=== PATIENT | female | born 1980 | race Caucasian/White ===

== ENCOUNTER 2017-09-24 11:29 | Emergency (ER) | payer SELFPAY ==
[~2017-09-24] VITALS: Ht 152.4 cm; Wt 56.0 kg
[~2017-09-24 11:29] MED LIST: DIPH25CA61 PO; DM H; GABA300C10 PO; HYDR-3240 PO; HYDR1TAB12 PO; IBUP100T PO; LOSA25TA2 PO; MULT1CAP19 PO; OXYC15TA60; PROM50TA4 PO; RIZATRIPTAN; TOPI100T24 PO; TRAM-47 PO; TRAM50TA2 PO; TRAZ50TA18 PO; [UNRECOGNIZED DRUG - REMARK]; [UNRECOGNIZED DRUG - REMARK]
[2017-09-24 11:42] VITALS: BP 133/87
== END 2017-09-24 12:35 | disposition left against medical advice (07) ==
LOC: ED 12:29
DX: R51 Headache (principal); Z53.21 Procedure and treatment not carried out due to patient leaving prior to being seen by health care provider

== ENCOUNTER 2018-04-10 08:58 | Emergency (ER) | payer BC, OTHER ==
[~2018-04-10] VITALS: Ht 152.4 cm; Wt 68.6 kg
[2018-04-10] MEDS ORDERED: LISI-167 PO (10:02)
[2018-04-10] MEDS ORDERED: LORazepam 2 MG/ML, 1ML IVPush STA (10:13)
[2018-04-10] MEDS ORDERED: ONDANSETRON 2MG/ML, 2ML ONE (10:25)
[2018-04-10] MEDS ORDERED: LORazepam 2 MG/ML, 1ML ONE (10:26)
[2018-04-10] MEDS ORDERED: FAMOTIDINE 20 MG/2 ML ONE (10:26)
[2018-04-10] MEDS ORDERED: SODIUM CHLORIDE 0.9% 1,000ML IVBOLUS ONE (10:30)
[2018-04-10] MEDS ORDERED: ONDANSETRON 2MG/ML, 2ML IVPush ONE (10:30)
[2018-04-10] MEDS ORDERED: FAMOTIDINE 20 MG/2 ML IVP ONE (10:30)
[2018-04-10] MEDS ORDERED: SODIUM CHLORIDE FLUSH 10ML SYR IVF ONE (10:30)
[2018-04-10 10:35] LABS: BASOPHILS # (AUTO) 0.03 x10^3/uL (0-0.1); BASOPHILS % (AUTO) 0 % (0-1); EOSINOPHILS # (AUTO) 0.19 x10^3/uL (0-0.4); EOSINOPHILS % (AUTO) 2 % (1-7); LYMPHOCYTES # (AUTO) 1.64 x10^3/uL (1-3.4); LYMPHOCYTES % (AUTO) 21 % (22-44); MD NO; MEAN CORPUSCULAR HEMOGLOBIN 31.6 pg (27.0-34.8); MEAN CORPUSCULAR HGB CONC 34.3 g/dL (32.4-35.8); MEAN CORPUSCULAR VOLUME 92.2 fL (80-100); MEAN PLATELET VOLUME 9.3 fL (7.4-10.4); MONOCYTES # (AUTO) 0.44 x10^3/uL (0.2-0.8); MONOCYTES % (AUTO) 6 % (2-9); NEUTROPHILS # (AUTO) 5.51 x10^3/uL (1.8-6.8); NEUTROPHILS % (AUTO) 71 % (42-75); PLATELET COUNT 235 x10^3/uL (130-400); RED BLOOD COUNT 4.99 x10^6/uL (3.82-5.3); RED CELL DISTRIBUTION WIDTH 12.4 % (9.6-15.2)
[2018-04-10 10:44] LABS: ALANINE AMINOTRANSFERASE 21 U/L (12-78); ANION GAP 10 mmol/L (5-15); CALCIUM 8.4 mg/dL (8.5-10.1); CHLORIDE 103 mmol/L (98-107); CREATININE 0.86 mg/dL (0.55-1.02)
[2018-04-10 10:49] LABS: ALKALINE PHOSPHATASE 66 U/L (45-117); BILIRUBIN,TOTAL 1.3 mg/dL (0.2-1.0); TOTAL PROTEIN 7.8 g/dL (6.4-8.2)
[2018-04-10 11:40] LABS: MICROSCOPIC AUTO
[2018-04-10 12:00] LABS: CULTURE INDICATED? NO
[2018-04-10 12:11] VITALS: BP 126/72
== END 2018-04-10 12:53 | disposition home or self-care (01) ==
LOC: ED 10:25
DX: R11.2 Nausea with vomiting, unspecified (principal); I10 Essential (primary) hypertension; G40.909 Epilepsy, unspecified, not intractable, without status epilepticus
CPT/HCPCS: 36415; 80053; 81001; 83690; 84703; 85025; 96361; 96374; 96375; 99284; J2060; J2405; J7030; S0028

== ENCOUNTER 2019-02-13 18:58 | Emergency (ER) | payer BC ==
[~2019-02-13] VITALS: Ht 152.4 cm; Wt 81.3 kg
[~2019-02-13 18:58] MED LIST changes: -HYDR1TAB12 PO; +HYDR1TAB13 PO; +LISI-167 PO; -TRAZ50TA18 PO; +TRAZ50TA66 PO
--- NOTE | 2019-02-13 19:12 | NUR ---
Pt ambulated to room with EDT.
--- NOTE | 2019-02-13 19:42 | NUR ---
Emily BEVERLY, at bedside to evaluate pt.
[2019-02-13] MEDS ORDERED: KETOROLAC 30 MG/1 ML ONE (19:52)
[2019-02-13] MEDS ORDERED: LEVETIRACETAM 500 MG TABLET ONE (19:52)
[2019-02-13] MEDS ORDERED: ONDANSETRON ODT 8 MG ONE (19:52)
[2019-02-13] MEDS ORDERED: DIAZEPAM 5 MG TABLET ONE (19:53)
[2019-02-13] MEDS ORDERED: KETOROLAC 30 MG/1 ML IM ONE (20:00)
[2019-02-13] MEDS ORDERED: DIAZEPAM 5 MG TABLET PO ONE (20:00)
[2019-02-13] MEDS ORDERED: ONDANSETRON ODT 8 MG PO ONE (20:00)
[2019-02-13] MEDS ORDERED: LEVETIRACETAM 500 MG TABLET PO ONE (20:00)
--- NOTE | 2019-02-13 20:05 | NUR ---
LUNCH BREAK NOTE: PT MEDICATED ORDERED. WILL REASSESS.
--- NOTE | 2019-02-13 20:36 | NUR ---
Emily BEVERLY, at bedside to recheck pt. Pt continues to c/o headache and right sided neck pain, however states that it is improving after medications, just slowly.
[2019-02-13] MEDS ORDERED: PROCHLORPERAZINE 5 MG/ML, 2ML ONE (20:44)
[2019-02-13] MEDS ORDERED: PROCHLORPERAZINE 5 MG/ML, 2ML IM ONE (21:00)
--- NOTE | 2019-02-13 21:19 | NUR ---
Patient medicated per MAR. Patient/Caregiver given discharge instructions and they have confirmed that they understand the instructions. Patient ambulatory with steady gait.
[2019-02-13 21:20] VITALS: BP 159/91
[2019-02-13] MEDS ORDERED: HYDROmorphone 1 MG/ML, 1ML INJ IM ONE (21:30)
== END 2019-02-13 21:30 | disposition home or self-care (01) ==
LOC: ED 21:24
DX: R51 Headache (principal); Z76.0 Encounter for issue of repeat prescription
CPT/HCPCS: 96372; 99284; J0780; J1170; J1885; Q0162